=== PATIENT | female | born 1980 | race Caucasian/White ===

== ENCOUNTER 2018-10-08 09:00 | Emergency (ER) | payer MEDICAID, OTHER ==
[2018-10-08 09:01] VITALS: BMI 31.6
--- NOTE | 2018-10-08 09:56 | C.PDOC ---
History Of Present Illness 38 y/o female w/ hx of back pain presents to ED with c/o right lower back pain for 8 days worse when walking. Patient states she had similar episode 1 year ago and was given Muscle relaxant that resolved pain, has tried Advil for current symptoms with no improvement. No hx of IVDU, or Afib or DM2. No rash or burning sensation. Patient denies trauma, falls, dysuria,vaginal discharge, urinary frequency, bowel/bladder incontinence, fever, chills, abdominal pain, change in sensation or any other complaints at this time. Time Seen by Provider: 10/08/18 09:55 Chief Complaint (Nursing): Back Pain History Per: Patient History/Exam Limitations: no limitations Onset/Duration Of Symptoms: Days Current Symptoms Are (Timing): Still Present Quality Of Discomfort: "Pain" Past Medical History Reviewed: Historical Data, Nursing Documentation, Vital Signs Vital Signs: Last Vital Signs Temp 97.8 F 10/08/18 09:22 Pulse 83 10/08/18 09:22 Resp 16 10/08/18 09:22 BP 128/81 10/08/18 09:22 Pulse Ox 99 10/08/18 09:22 - Medical History PMH: No Chronic Diseases Surgical History: No Surg Hx - [facility] Procedures LOW CERVICAL (06/17/14) Family History: States: No Known Family Hx - Social History Hx Alcohol Use: No Hx Substance Use: No - Immunization History Hx Tetanus Toxoid Vaccination: No Hx Influenza Vaccination: No Hx Pneumococcal Vaccination: No Review Of Systems Constitutional: Negative for: Fever, Chills Eyes: Negative for: Pain ENT: Negative for: Ear Pain, Ear Discharge Cardiovascular: Negative for: Chest Pain, Palpitations Respiratory: Negative for: Cough, Shortness of Breath Gastrointestinal: Negative for: Nausea, Vomiting, Abdominal Pain Genitourinary: Negative for: Dysuria, Frequency, Hematuria, Vaginal Discharge Musculoskeletal: Positive for: Back Pain. Negative for: Neck Pain Skin: Negative for: Rash Neurological: Negative for: Weakness, Numbness, Incoordination, Confusion, Altered Mental Status, Headache Physical Exam - Physical Exam Appears: Non-toxic, No Acute Distress Skin: Warm, Dry, No Rash Head: Atraumatic, Normacephalic Eye(s): bilateral: Normal Inspection, PERRL, EOMI Ear(s): Bilateral: Normal Nose: Normal Oral Mucosa: Moist Tongue: Normal Appearing Lips: Normal Appearing Throat: Normal Neck: Normal ROM, Supple, Other (no meningeal signs) Cardiovascular: Rhythm Regular Respiratory: Normal Breath Sounds, No Rales, No Rhonchi, No Wheezing Gastrointestinal/Abdominal: Soft, No Tenderness, No Guarding, No Rebound Back: Normal Inspection, No CVA Tenderness, No Vertebral Tenderness, No Decreased ROM, Straight Leg Raising, Other (right lumbar tenderness, Pain radiating from right lumbar area down passed right knee. ) Extremity: Normal ROM, No Pedal Edema, Capillary Refill (<2 seconds) Extremity: Bilateral: Atraumatic Pulses: Left Dorsalis Pedis: Normal Neurological/Psych: Oriented x3, Normal Speech, Normal Cognition, No Cerebellar Signs, Normal Motor, Normal Sensation Gait: Steady ED Course And Treatment O2 Sat by Pulse Oximetry: 99 (RA) Pulse Ox Interpretation: Normal Medical Decision Making Medical Decision Makin yr old F w/ hx of back pain p/w lumbar pain feels exactly alike previous strain 1 year prior. No saddle anesthesia, loss of sensation in legs b/l, difficulty ambulating or enuresis or encoparesis. No CVA T. NO HTN. No Urinary complaints. No abd pain. Plan:POC urine , lumbar spine xray ordered, Flexeril administered 1147 Xray unremarkable Pain improved, Pt in NAD, ambulating w/ out pain in ER. remains w/ out Cauda equina symptoms, clear for d/c home w/ flexiril f/u and return indications. pt agreeable. Disposition - Disposition Disposition: HOME/ ROUTINE Disposition Time: 11:49 Condition: GOOD Forms: [email or web address] (Yakut) - Clinical Impression Clinical Impression: Low back pain, Lumbar sprain - Scribe Statement The provider has reviewed the documentation as recorded by the Kamille Talley All medical record entries made by the Kamille were at my direction and personally dictated by me. I have reviewed the chart and agree that the record accurately reflects my personal performance of the history, physical exam, medical decision making, and the department course for this patient. I have also personally directed, reviewed, and agree with the discharge instructions and disposition.
--- NOTE | 2018-10-08 11:56 | RAD ---
Date of service: 10/08/2018 PROCEDURE: Radiographs of the Lumbar Spine. HISTORY: Lumbar pain COMPARISON: No prior. FINDINGS: BONES: Alignment appears satisfactory. No listhesis. No acute displaced fracture identified. DISC SPACES: Unremarkable. OTHER FINDINGS: None. IMPRESSION: No acute displaced fracture or subluxation identified.
[2018-10-08 11:58] VITALS: BP 127/81; PULSE 63; RESP 18; TEMP 98.7; O2SAT 97
== END 2018-10-08 12:01 | disposition home or self-care (01) ==
LOC: C.ER 09:00
DX: S33.5XXA Sprain of ligaments of lumbar spine, initial encounter (principal); X58.XXXA Exposure to other specified factors, initial encounter; M54.5 Low back pain

== ENCOUNTER 2018-11-10 22:52 | Emergency (ER) | payer SELFPAY ==
[2018-11-10 22:52] VITALS: BMI 31.6
[2018-11-10 23:00] VITALS: RESP 20
[2018-11-10] MEDS ORDERED: Tetracaine 0.5% Ophth (OR ONLY) ONE (23:23)
[2018-11-10] MEDS ORDERED: Erythromycin 0.5% Ophth Oint 1 APPLIC/3.5 G ONE (23:53)
[2018-11-10] MEDS ORDERED: Tobramycin 0.3% OPH OINT ONE (23:54)
--- NOTE | 2018-11-11 00:08 | C.PDOC ---
History Of Present Illness 38 year old female presents to the ED for evaluation of right eye redness and discomfort which began this morning. Patient denies itchiness, discharge, vision change, recent trauma to the area, or foreign body sensation. Time Seen by Provider: 11/10/18 23:01 Chief Complaint (Nursing): ENT Problem History Per: Patient History/Exam Limitations: no limitations Onset/Duration Of Symptoms: Hrs Current Symptoms Are (Timing): Still Present Injury To Eye?: No Quality: Other (discomfort ) Associated Symptoms: Other (erythema ). denies: Decreased Vision, FB Sensation, Discharge From Eye Additional History Per: Patient Past Medical History Reviewed: Historical Data, Nursing Documentation, Vital Signs Vital Signs: Last Vital Signs Temp 98.8 F 11/10/18 22:54 Pulse 77 11/10/18 22:54 Resp 20 11/10/18 22:54 BP 143/88 11/10/18 22:54 Pulse Ox 97 11/10/18 22:54 - Medical History PMH: No Chronic Diseases Surgical History: No Surg Hx - [facility] Procedures LOW CERVICAL (06/17/14) Family History: States: Unknown Family Hx - Social History Hx Alcohol Use: No Hx Substance Use: No - Immunization History Hx Tetanus Toxoid Vaccination: No Hx Influenza Vaccination: No Hx Pneumococcal Vaccination: No Review Of Systems Eyes: Positive for: Redness (right eye ). Negative for: Other (discharge, trauma, foreign body ) Physical Exam - Physical Exam Appears: Non-toxic, No Acute Distress Skin: Normal Color, Warm, Dry Head: Atraumatic, Normacephalic Eye(s): bilateral: PERRL, EOMI, right: Other (moderate ciliary injection of conjunctiva. mild crusting at lower eyelid. Fluorescein test: no corneal abrasion or foreign body visualized ), left: Normal Inspection Neurological/Psych: Normal Speech, Normal Cognition Additional Physical Exam Comments: Visual acuity: Right eye: 20/50- blurry Left eye: 20/20 ED Course And Treatment O2 Sat by Pulse Oximetry: 97 (on RA) Pulse Ox Interpretation: Normal Progress Note: Right eye Fluorescein stained. No signs corneal abrasion ot foreign body visualized. Patient tolerated well. On reassessment, patient is resting comfortably, showing no signs of distress and is stable for discharge. Patient is advised to follow up with eye doctor within 1-2 days for further evaluation. She is advised to return to the ED if symptoms persist or worsen. 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 - Scribe Statement The provider has reviewed the documentation as recorded by the Scribe (Kate Rai) All medical record entries made by the Scribe were at my direction and personally dictated by me. I have reviewed the chart and agree that the record accurately reflects my personal performance of the history, physical exam, medical decision making, and the department course for this patient. I have also personally directed, reviewed, and agree with the discharge instructions and disposition.
[2018-11-11 00:21] VITALS: BP 140/80; PULSE 82; TEMP 98.6
[2018-11-11 02:21] VITALS: O2SAT 97
== END 2018-11-11 00:27 | disposition home or self-care (01) ==
LOC: C.ER 22:52
DX: H10.9 Unspecified conjunctivitis (principal)